=== PATIENT | female | born 1990 | race Caucasian/White ===

== ENCOUNTER 2019-08-16 13:56 | Emergency (ER) | payer OTHER ==
[~2019-08-16] VITALS: Ht 162.6 cm; Wt 60.8 kg
[2019-08-16] MEDS ORDERED: Amoxicillin500 MG PO (14:05)
[2019-08-16] MEDS ORDERED: IBUP800 PO (14:05)
== END 2019-08-16 14:04 | disposition home or self-care (01) ==
LOC: ER 13:56
DX: K04.7 Periapical abscess without sinus (principal); Z88.5 Allergy status to narcotic agent
CPT/HCPCS: 99282

== ENCOUNTER 2019-08-20 14:33 | Emergency (ER) | payer OTHER ==
[~2019-08-20] VITALS: Ht 162.6 cm; Wt 67.6 kg
[~2019-08-20 14:33] MED LIST: Amoxicillin500 MG PO; IBUP800 PO
[2019-08-20 16:29] LABS: BASOPHILS ABSOLUTE AUTO 0.02 K/mm3 (0.00-0.23); BASOPHILS PERCENT AUTO 0 % (0-2); EOSINOPHILS ABSOLUTE AUTO 0.38 K/mm3 (0.00-0.68); EOSINOPHILS PERCENT AUTO 4 % (0-6); Hematocrit 32.7 % (33.0-51.0); Hemoglobin 10.9 g/dL (11.5-16.0); IMMATURE GRAN ABSOLUTE AUTO 0.03 K/mm3 (0.00-0.10); IMMATURE GRAN PERCENT AUTO 0 % (0-1); LYMPHOCYTES ABSOLUTE AUTO 3.62 K/mm3 (0.84-5.20); LYMPHOCYTES PERCENT AUTO 38 % (21-46); MONOCYTES ABSOLUTE AUTO 0.57 K/mm3 (0.16-1.47); MONOCYTES PERCENT AUTO 6 % (4-13); Mean Corpuscular HGB 29.8 pg (26.0-34.0); Mean Corpuscular HGB Conc 33.3 g/dL (31.5-36.5); Mean Corpuscular Volume 89 fL (80-100); NEUTROPHILS ABSOLUTE AUTO 4.83 K/mm3 (1.96-9.15); NEUTROPHILS PERCENT AUTO 51 % (41-73); Platelet Count 250 K/mm3 (150-400); RDW Coefficient Variation 13.4 % (11.7-14.2); Red Blood Cell Count 3.66 M/mm3 (3.80-5.20); White Blood Cell Count 9.45 K/mm3 (4.00-11.30)
[2019-08-20] MEDS ORDERED: BUPRENORPHINE HC8 MG PO (16:45)
[2019-08-20 16:49] LABS: Alanine Aminotransfer (ALT/SGP 71 U/L (12-78); Albumin, Blood 3.3 g/dL (3.4-5.0); Albumin/Globulin Ratio 0.9 (0.8-1.8); Alk Phos 62 U/L (50-136); Anion Gap 3 mmol/L (6-16); Aspartate Aminotrans (AST/SGOT 40 U/L (12-37); Bilirubin, Total 0.2 mg/dL (0.1-1.0); Blood Urea Nitrogen 14 mg/dL (8-24); Bun/Creatinine Ratio 18.7 (12.0-20.0); CO2, Blood 28 mmol/L (21-32); Calcium, Blood 8.4 mg/dL (8.5-10.1); Chloride, Blood 106 mmol/L (98-108); Creatinine, Blood 0.75 mg/dL (0.40-1.00); Globulin, Blood 3.8 g/dL (2.2-4.0); Glomerular Filtration Rate >60 (60-); Glucose, Blood 91 mg/dL (70-99); Potassium, Blood 4.7 mmol/L (3.5-5.5); Sodium, Blood 137 mmol/L (136-145); Total Protein, Blood 7.1 g/dL (6.4-8.2)
[2019-08-20 18:09] LABS: Source, Urine Clean Catch
[2019-08-20 18:25] LABS: Bilirubin, Urine Neg (Neg); Blood, Urine 5+ (Neg); Glucose Qualitative, Urine Neg (Neg); Ketones, Urine Neg (Neg); Leukocyte Esterase, Urine 1+ (Neg); Nitrite, Urine Neg (Neg); Protein, Urine Neg (Neg); Urobilinogen, Urine NORM (Normal)
[2019-08-20 18:27] LABS: Appearance, Urine Hazy (Clear); Color, Urine Pale Yellow (P-Yellow)
[2019-08-20 18:28] LABS: Red Blood Cells, Urine 0-2 /hpf (0-2); Squamous Epithelial Cells Many /hpf (Few)
[2019-08-20 18:29] LABS: Bacteria Few /hpf
== END 2019-08-20 18:55 | disposition home or self-care (01) ==
LOC: ER 14:33
PROVIDERS: Physician Assistant
DX: N83.202 Unspecified ovarian cyst, left side (principal); N94.6 Dysmenorrhea, unspecified; F17.210 Nicotine dependence, cigarettes, uncomplicated; Z88.5 Allergy status to narcotic agent; Z91.018 Allergy to other foods; Z91.013 Allergy to seafood
CPT/HCPCS: 36415; 76830; 76856; 80053; 81001; 84703; 85025; 87086; 99284-25

== ENCOUNTER 2019-08-26 09:29 | Emergency (ER) | payer OTHER ==
[~2019-08-26] VITALS: Ht 162.6 cm; Wt 68.0 kg
[~2019-08-26 09:29] MED LIST changes: +BUPRENORPHINE HC8 MG PO
[2019-08-26] MEDS ORDERED: Amoxicillin500 MG PO (10:46)
[2019-08-26] MEDS ORDERED: CLIN300 PO (10:46)
== END 2019-08-26 10:47 | disposition home or self-care (01) ==
LOC: ER 09:29
DX: K04.7 Periapical abscess without sinus (principal); F17.210 Nicotine dependence, cigarettes, uncomplicated; Z88.5 Allergy status to narcotic agent; Z91.018 Allergy to other foods; Z91.013 Allergy to seafood
CPT/HCPCS: 99282

== ENCOUNTER 2019-09-02 17:55 | Emergency (ER) | payer OTHER ==
[~2019-09-02] VITALS: Ht 162.6 cm; Wt 70.3 kg
[~2019-09-02 17:55] MED LIST changes: +CLIN300 PO
[2019-09-02] MEDS ORDERED: Vibramycin100 MG PO (18:25)
== END 2019-09-02 18:43 | disposition home or self-care (01) ==
LOC: ER 17:55
DX: K02.9 Dental caries, unspecified (principal); Z88.5 Allergy status to narcotic agent; Z91.018 Allergy to other foods; Z91.013 Allergy to seafood; Z79.899 Other long term (current) drug therapy; Z87.891 Personal history of nicotine dependence
CPT/HCPCS: 99282